=== PATIENT | male | born 1945 | race Caucasian/White ===

== ENCOUNTER 2019-08-13 13:52 | Emergency (ER) | payer BC ==
--- NOTE | 2019-08-13 14:22 | Emergency Department Record ---
History of Present Illness - General Chief Complaint: Shortness of breath Stated Complaint: LOW OXYGEN Time Seen by Provider: 08/13/19 14:11 Source: Patient Mode of Arrival: Ambulatory Limitations: No limitations - History of Present Illness Initial Comments: The patient is here due to having a cough for a week. He denies any sputum production, fever, chills, SOB, DECLAN, or CP. The patient went to an in [place] and they found his oxygen to be low. Because of that he was sent here to [facility] for further evaluation. The patient states the pulse ox was not fitting on his finger well at the time they were measuring it. The patient did receive a Depomedrol shot. Complaint: Cough Onset/Timin -: Week(s) Improves With: Nothing Worsens With: Nothing Treatments Prior to Arrival: Bronchodilator, Other - Related Data Home Medications Medication Instructions Recorded Confirmed Last Taken Albuterol Sulfate [Proair Hfa] 1 - 2 puff IH .EVERY 4-6 HOURS PRN 08/13/19 08/13/19 Unknown Aspirin [Aspir-Low] 81 mg PO DAILY 08/13/19 08/13/19 Unknown Cephalexin 250 mg PO QID 08/13/19 08/13/19 Unknown Cyclobenzaprine HCl [Flexeril] 10 mg PO TID 08/13/19 08/13/19 Unknown Ezetimibe [Zetia] 10 mg PO DAILY 08/13/19 08/13/19 Unknown Levothyroxine Sodium [Synthroid] 25 mcg PO DAILY 08/13/19 08/13/19 Unknown Lisinopril 2.5 mg PO DAILY 08/13/19 08/13/19 Unknown Losartan Potassium [Cozaar] 25 mg PO DAILY 08/13/19 08/13/19 Unknown Metoprolol Succinate [Toprol Xl] 12.5 mg PO DAILY 08/13/19 08/13/19 Unknown Pravastatin Sodium [Pravachol] 80 mg PO DAILY 08/13/19 08/13/19 Unknown Tamsulosin HCl [Flomax] 0.4 mg PO DAILY 08/13/19 08/13/19 Unknown Warfarin Sodium 5 mg PO DAILY 08/13/19 08/13/19 Unknown Previous Rx's Medication Instructions Recorded Doxycycline Monohydrate [Mondoxyne 100 mg PO BID 7 Days #14 capsule 08/13/19 Nl] Allergies Allergy/AdvReac Type Severity Reaction Status Date / Time morphine AdvReac BEHAVIORAL Verified 08/13/19 14:11 CHANGES Travel Screening - Travel/Exposure Within Last 30 Days Have you traveled within the last 30 days?: No - Travel/Exposure Within Last Year Have you traveled outside the [place] in the last year?: No - Additonal Travel Details Have you been exposed to anyone with a communicable illness?: No - Travel Symptoms Symptom Screening: None Past Medical History - SOCIAL HISTORY Smoking Status: Former smoker Alcohol Use: None Drug Use: None - RESPIRATORY Hx Respiratory Disorders: Yes Hx Pneumonia: Yes - CARDIOVASCULAR Hx Cardio Disorders: Yes Hx Abnormal EKG: Yes Hx Cardiac Cath: Yes Hx CHF: Yes Hx Heart Attack: Yes (2013) Hx Hypertension: Yes - NEURO Hx Neuro Disorders: No - GI Hx GI Disorders: No - Hx Genitourinary Disorders: Yes Hx Kidney Stones: Yes Hx Prostate Problems: Yes - ENDOCRINE Hx Endocrine Disorders: Yes Hx Diabetes: No Hx Thyroid Disease: Yes (hyper) - MUSCULOSKELETAL Hx Musculoskeletal Disorders: Yes Hx Arthritis: Yes - PSYCH Hx Psych Problems: No - HEMATOLOGY/ONCOLOGY Hx Hematology/Oncology Disorders: No Family Medical History Any Significant Family History?: No Physical Exam - General General Appearance: Alert, Oriented x3, Cooperative, No acute distress (The patient is ambulating without difficulty and is speaking in full sentences with no difficulty.) - Head Head exam: Atraumatic, Normocephalic, Normal inspection - Eye Eye exam: Normal appearance, PERRL, EOMI - ENT Throat exam: Normal inspection. negative: Tonsillar erythema, Tonsillar exudate - Neck Neck exam: Normal inspection, Full ROM. negative: Tenderness - Respiratory Respiratory exam: Normal lung sounds bilaterally. negative: Accessory muscle use, Rales, Respiratory distress, Rhonchi, Stridor, Wheezes - Cardiovascular Cardiovascular Exam: Regular rate, Normal rhythm, Normal heart sounds. negative: Diastolic murmur, Systolic murmur - GI/Abdominal GI/Abdominal exam: Soft, Normal bowel sounds. negative: Tenderness - Extremities Extremities exam: Normal inspection, Full ROM, Normal capillary refill. negative: Tenderness - Back Back exam: Reports: Normal inspection - Neurological Neurological exam: Alert, Normal gait. negative: Abnormal gait, Motor sensory deficit - Psychiatric Psychiatric exam: negative: Anxious Course Vital Signs 08/13/19 13:59 Temperature 98.7 F Pulse Rate 74 Respiratory 16 Rate Blood Pressure 102/69 Pulse Ox 98 - Reevaluation(s) Reevaluation #1: The patient is doing very well at this time. He denies ANY SOB, DECLAN, or any pain. On exam his lungs are clear and his repeat biox is 95%. He is up a mbulating normally with no issues. I did discuss the xray report and the need for Doxycycline for an oral Abx. Due to the patient's INR being a little low I do feel it is safe starting him on this. He will need to have his INR rechecked on Saturday in 4 days and he agrees to that plan. 08/13/19 15:18 Medical Decision Making - Data Complexity MDM Data: Labs Ordered and/or Reviewed, X-Ray Ordered and/or Reviewed - Lab Data Result diagrams: 08/13/19 14:31 08/13/19 14:31 - Radiology Data Radiology results: Report reviewed (CXR: Possible very suble RML and LLL infiltrate.) Disposition Disposition: Discharge Clinical Impression: Pneumonia Qualifiers: Pneumonia type: due to unspecified organism Laterality: unspecified laterality Lung location: unspecified part of lung Qualified Code(s): J18.9 - Pneumonia, unspecified organism Disposition: Home, Self-Care Condition: (2) Stable Instructions: Pneumonia (ED) Additional Instructions: Please take the Doxycycline as directed and also use the inhaller. Please see your doctor on Saturday for recheck and to have your INR rechecked. Return to the ER for any worsening issues or any trouble breathing or shortness of breath. Prescriptions: Doxycycline Monohydrate [Freidane Nl] 100 mg PO BID 7 Days #14 capsule Forms: Patient Portal Access Time of Disposition: 15:21 Quality - Quality Measures Quality Measures: N/A - Blood Pressure Screening View Details: Yes Does Patient Have Any of the Following: No Blood Pressure Classification: Normal BP Reading Systolic Measurement: 102 Diastolic Measurement: 69 Screening for High Blood Pressure: < Normal BP, F/U Not Required > [[id number]]
[2019-08-13 14:38] LABS: ABSOLUTE NEUTROPHIL COUNT 1.94; BASO % 0.6 % (0-6); EOS % 2.3 % (0-6); HEMATOCRIT 43.4 % (42.0-52.0); HEMOGLOBIN 14.5 gm/dl (14.0-18.0); LYMPH % 22.7 % (16-45); MEAN CELL VOLUME 92.9 fl (81-97); MEAN CORPUSCULAR HGB CONC 33.4 g/dl (32-36); MEAN PLATELET VOLUME 9.1 fl (7.4-10.4); MONO % 11.4 % (0-9); PLATELET COUNT 176 K/uL (130-400); RED BLOOD COUNT 4.67 M/uL (4.40-5.70); RED CELL DISTRIBUTION WIDTH 12.9 % (11.5-14.5); WHITE BLOOD COUNT W/O DIFF 3.1 K/uL (4.2-12.2)
[2019-08-13 14:48] LABS: BILIRUBIN,TOTAL 0.2 mg/dL (0.2-1.0); CREATININE 1.3 mg/dL (0.7-1.2)
[2019-08-13 14:49] LABS: TOTAL PROTEIN 7.3 g/dL (6.6-8.7)
[2019-08-13 14:51] LABS: INR 1.6; PARTIAL THROMBOPLASTIN TIME 34.3 SECONDS (24.5-39.1); PROTHROMBIN TIME (PATIENT) 15.8 SECONDS (9.5-12.1)
[2019-08-13 14:54] LABS: ALB/GLOB RATIO 1.1 (1.1-1.8); ALBUMIN 3.9 g/dL (4.0-5.0)
--- NOTE | 2019-08-13 15:13 | RADIOLOGY REPORT ---
EXAMINATION: Two View Chest Radiographs EXAM DATE: 08/13/2019 2:45 PM TECHNIQUE: Frontal and lateral views INDICATION: cough COMPARISON: None ENCOUNTER: Not applicable FINDINGS: Loss of definition of the right heart border with increased density over the heart and lateral view c onsistent with middle lobe infiltrate. Patchy left lower lobe opacity may be some peribronchial thick ening or subtle infiltrate. No vascular congestion or pleural effusion. Cardiac silhouette size normal. IMPRESSION: Middle lobe infiltrate and possibly left lower lobe infiltrate. Recommend follow-up chest x-ray in 6- 8 weeks after appropriate treatment if there is no clinical reason to reimage the patient sooner. Dictated by: Jakub Raya MD on 08/13/2019 3:10 PM. .
== END 2019-08-13 15:27 | disposition home or self-care (01) ==
LOC: ER 13:52
DX: J18.9 Pneumonia, unspecified organism (principal); I10 Essential (primary) hypertension; I25.2 Old myocardial infarction; I50.9 Heart failure, unspecified; Z87.891 Personal history of nicotine dependence
CPT/HCPCS: 71046; 80053; 85025; 85610; 85730; 99284